=== PATIENT | female | born 1980 | race American Indian/Alaskan Native ===

== ENCOUNTER 2019-06-27 21:01 | Emergency (ER) | payer SELFPAY ==
--- NOTE | 2019-06-27 21:21 | Emergency Department Report ---
Blank Doc - Documentation Documentation: 39-year-old female that presents with chest pain. Denies any SOB. Denies any radiation. This initial assessment/diagnostic orders/clinical plan/treatment(s) is/are subject to change based on patient's health status, clinical progression and re- assessment by fellow clinical providers in the ED. Further treatment and workup at subsequent clinical providers discretion. Patient/guardians urged not to elope from the ED as their condition may be serious if not clinically assessed and managed. Initial orders include: 1- Patient sent to [facility] for further evaluation and treatment 2- EKG 3- labs 4- CXR
[2019-06-27 21:23] VITALS: BP 130/77
[2019-06-27 21:42] LABS: Basophils # (Auto) 0.1 K/mm3 (0.0-0.1); Basophils % (Auto) 0.7 % (0.0-1.8); Eosinophils # (Auto) 0.1 K/mm3 (0.0-0.4); Eosinophils % (Auto) 1.3 % (0.0-4.3); Hematocrit 33.2 % (30.3-42.9); Hemoglobin 11.1 gm/dl (10.1-14.3); Lymphocytes # (Auto) 2.1 K/mm3 (1.2-5.4); Lymphocytes % (Auto) 24.2 % (13.4-35.0); Mean Corpuscular HGB Conc 33 % (30-34); Mean Corpuscular Volume 101 fl (79-97); Monocytes # (Auto) 0.6 K/mm3 (0.0-0.8); Monocytes % (Auto) 6.8 % (0.0-7.3); Platelet Count 270 K/mm3 (140-440); Red Blood Count 3.28 M/mm3 (3.65-5.03); Red Cell Distribution Width 17.1 % (13.2-15.2)
[2019-06-27 21:58] LABS: INR 1.01 (0.87-1.13)
[2019-06-27 21:59] LABS: BUN/Creatinine Ratio 10; Blood Urea Nitrogen 6 mg/dL (7-17); Calcium 8.7 mg/dL (8.4-10.2); Hemolysis Index 28; Partial Thromboplastin Time 28.6 Sec. (24.2-36.6)
--- NOTE | 2019-06-27 22:06 | XRay Report ---
CHEST 2 VIEWS INDICATION: Chest Pain. COMPARISON: None FINDINGS: Support devices: None. Heart: Within normal limits. Lungs: No acute air space or interstitial disease. Pleura: No significant pleural effusion. No pneumothorax. Additional findings: None. IMPRESSION: 1. No acute findings. Signer Name: Jed Ibrahim MD Signed: 06/27/2019 10:02 PM Workstation Name: [id number]
[2019-06-27 22:25] LABS: HDL Cholesterol 43 mg/dL (40-59); LDL Cholesterol,Direct 119 mg/dL (50-130)
== END 2019-06-28 00:44 | disposition left against medical advice (07) ==
LOC: ED 21:01
DX: R07.89 Other chest pain (principal); Z53.21 Procedure and treatment not carried out due to patient leaving prior to being seen by health care provider
CPT/HCPCS: 36415; 71046; 80048; 80061; 84484; 85025; 85610; 85730; 93005; 93010

== ENCOUNTER 2022-05-07 16:18 | Emergency (ER) | payer MEDICARE, MEDICAID ==
[2022-05-07 17:47] VITALS: BP 110/84
--- NOTE | 2022-05-07 18:19 | XRay Report ---
CHEST 2 VIEWS INDICATION: Chest Pain. COMPARISON: 06/27/2019 FINDINGS: SUPPORT DEVICES: None. HEART: Within normal limits. LUNGS/PLEURA: No acute air space or interstitial disease. No pneumothorax. ADDITIONAL FINDINGS: None. IMPRESSION: 1. No acute findings. Signer Name: Everardo Franco MD Signed: 05/07/2022 6:14 PM Workstation Name: [id number]
[2022-05-07 19:19] LABS: Basophils % (Auto) 0.3 % (0.0-1.8); Eosinophils # (Auto) 0.2 K/mm3 (0.0-0.4); Eosinophils % (Auto) 1.5 % (0.0-4.3); Hematocrit 40.7 % (30.3-42.9); Hemoglobin 12.9 gm/dl (10.1-14.3); Lymphocytes # (Auto) 3.8 K/mm3 (1.2-5.4); Lymphocytes % (Auto) 29.5 % (13.4-35.0); Mean Corpuscular HGB Conc 32 % (30-34); Mean Corpuscular Volume 96 fl (79-97); Monocytes # (Auto) 0.8 K/mm3 (0.0-0.8); Monocytes % (Auto) 5.8 % (0.0-7.3); Platelet Count 251 K/mm3 (140-440); Red Blood Count 4.26 M/mm3 (3.65-5.03); Red Cell Distribution Width 15.3 % (13.2-15.2)
[2022-05-07 20:03] LABS: Alanine Aminotransferase 8 units/L (7-56); BUN/Creatinine Ratio 10; Blood Urea Nitrogen 10 mg/dL (7-17); Calcium 9.5 mg/dL (8.4-10.2); Hemolysis Index 7
--- NOTE | 2022-05-08 12:28 | Electrocardiograph Report ---
[facility] Test Date: 2022-05-07 Test Time: 17:44:38 Pat Name: MEL MONCADA Department: Room: Gender: F [employer] Technician: SONI : 1980 Requested By: MAKAYLA HARVEY Order Number: [id number] Reading MD: Kendell Rios Measurements Intervals [place] Rate: 104 P: 46 [place]: 123 QRS: 35 QRSD: 75 T: 28 QT: 338 QTc: 445 Interpretive Statements Sinus tachycardia No previous ECG available for comparison Electronically Signed On 05-08-2022 12:27:41 EDT by Kendell Rios
== END 2022-05-08 03:40 | disposition left against medical advice (07) ==
LOC: ED 16:18
DX: R07.9 Chest pain, unspecified (principal); Z53.21 Procedure and treatment not carried out due to patient leaving prior to being seen by health care provider
CPT/HCPCS: 36415; 71046; 80053; 84484; 85025; 93005